=== PATIENT | female | born 1955 | race Two or more races ===

== ENCOUNTER 2023-10-19 10:54 | Inpatient (IN) | payer OTHER ==
[2023-10-19] MEDS ORDERED: ACETAMINOPHEN INJECTION 100 ML IVPB ONE (11:30)
[2023-10-19] MEDS ORDERED: levETIRAcetam 500 MG/5 ML INJECTION VIAL IVPB ONE (11:30)
[2023-10-19 11:47] LABS: VENOUS BASE EXCESS -0.6 mmol/L (-2-2); VENOUS O2 SATURATION 24.7 % (70-80); VENOUS PCO2 51.8 mmHg (38-52); VENOUS PH 7.322 (7.310-7.410)
[2023-10-19 11:50] LABS: HEMOGLOBIN 12.7 GM/dL (10.7-15.3); INR 1.06 (0.83-1.09); MCHC 32.6 g/dl (32.0-36.0); MEAN CELL VOLUME 98.2 fl (80-96); MEAN PLT VOLUME 7.9 fl (7.5-11.1); PLATELET COUNT 141 10^3/uL (134-434); PROTHROMBIN TIME (PATIENT) 12.3 SEC (9.7-13.0); RBC 3.97 M/mm3 (3.60-5.2); RDW 16.4 % (11.6-15.6); WHITE BLOOD COUNT 4.1 K/mm3 (4.0-10.0)
[2023-10-19 11:53] LABS: ACTIVATED PTT 25.9 SECONDS (25.2-36.5)
[2023-10-19 12:03] LABS: POTASSIUM 5.8 mmol/L (3.5-5.1)
[2023-10-19] MEDS: ACETAMINOPHEN 1000 MG/100 ML BAG IVPB ONE (12:04)
[2023-10-19] MEDS: levETIRAcetam 500 MG/5 ML INJECTION VIAL IVPB ONE (12:04)
[2023-10-19 12:05] LABS: BLOOD UREA NITROGEN 29.7 mg/dL (7-18)
[2023-10-19 12:06] LABS: ALBUMIN 3.1 g/dl (3.4-5.0)
[2023-10-19 12:08] LABS: CREATININE 7.3 mg/dL (0.55-1.3)
[2023-10-19 12:10] LABS: BILIRUBIN,TOTAL 0.6 mg/dL (0.2-1)
[2023-10-19 12:14] LABS: ANISOCYTOSIS 0; MACROCYTOSIS 0
[2023-10-19 13:12] LABS: CALCIUM 9.5 mg/dL (8.5-10.1); POTASSIUM 5.1 mmol/L (3.5-5.1)
[2023-10-19 13:13] LABS: BLOOD UREA NITROGEN 30.8 mg/dL (7-18)
[2023-10-19 13:16] LABS: CREATININE 7.1 mg/dL (0.55-1.3)
[2023-10-19] MEDS ORDERED: VANCOMYCIN 1 GRAM (PRE-DOCKED) 1,000 MG/250 ML BAG IVPB ONE (13:23)
[2023-10-19 13:24] LABS: LACTIC ACID 2.6 mmol/L (0.4-2.0)
[2023-10-19] MEDS: VANCOMYCIN 1,000 MG in DEXTROSE 5%-WATER - 250 ML IVPB ONE (13:36)
[2023-10-19 13:39] LABS: PH,URINE 7.5 (5.0-8.0); URINE APPEARANCE TURBID; URINE BILIRUBIN SMALL (NEGATIVE); URINE COLOR ORANGE; URINE GLUCOSE (UA) NEGATIVE (NEGATIVE); URINE KETONE NEGATIVE (NEGATIVE); URINE PROTEIN 300 (NEGATIVE); URINE UROBILINOGEN 0.2 mg/dL (0.2-1.0)
[2023-10-19 13:40] LABS: HYALINE CASTS 1047.21 /uL (0-3.1); URINE BACTERIA 703.2 /uL (0-1359); URINE LEUK ESTERASE 4+ (NEGATIVE); URINE NITRITE POSITIVE (NEGATIVE); URINE RBC 383.2 /uL (0-23.9); URINE WBC 23731.9 /uL (0-25.8)
[2023-10-19] MEDS: SODIUM CHLORIDE 0.9% 500 ML INFUS.BAG IV ONE (14:23)
[2023-10-19] MEDS ORDERED: NOREPINEPHRINE 0.9 % NACL 8 MG/250 ML BAG IVPB ONE (14:56)
[2023-10-19] MEDS: BUDESONIDE/FORMETEROL FUMARATE 160/4.5 mcg INHALER IH ONE (15:15)
[2023-10-19] MEDS: NOREPINEPHRINE BITARTRATE 8,000 MCG in SODIUM CHLORIDE 492 ML IV SCH (15:19)
[2023-10-19 16:23] VITALS: BMI 38.0
[2023-10-19] MEDS: NOREPINEPHRINE 0.9 % NACL 8 MG/250 ML BAG IVPB SCH (16:52)
[2023-10-19] MEDS: CIPROFLOXACIN 400 MG/D5W 400 MG/200 ML IVPB IVPB ONE (17:21)
[2023-10-19 17:26] LABS: POTASSIUM 4.4 mmol/L (3.5-5.1)
[2023-10-19 17:28] LABS: ALBUMIN 2.8 g/dl (3.4-5.0); CALCIUM 8.8 mg/dL (8.5-10.1)
[2023-10-19 17:29] LABS: BLOOD UREA NITROGEN 31.1 mg/dL (7-18); MAGNESIUM 1.7 mg/dL (1.8-2.4)
[2023-10-19 17:31] LABS: CREATININE 7.3 mg/dL (0.55-1.3)
[2023-10-19 17:32] LABS: PHOSPHOROUS 1.8 mg/dL (2.5-4.9)
[2023-10-19 17:33] LABS: BILIRUBIN,TOTAL 0.8 mg/dL (0.2-1); TOT PROT 6.9 g/dl (6.4-8.2)
[2023-10-19] MEDS: AZTREONAM 1 GM in DEXTROSE 5%-WATER - 50 ML IVPB SCH (17:52)
[2023-10-19] MEDS: ACETAMINOPHEN 1000 MG/100 ML BAG IVPB PRN (17:53)
[2023-10-19] MEDS: AZTREONAM 1 GM VIAL (RESTRICTED TO ID) IVPB SCH (18:02)
[2023-10-19] MEDS: NOREPINEPHRINE BITARTRATE 16,000 MCG in SODIUM CHLORIDE 484 ML IV SCH (18:02)
[2023-10-19 18:27] LABS: BASO % 0.2 % (0-2.0); EOS % 0.6 % (0-4.5); HEMOGLOBIN 11.4 GM/dL (10.7-15.3); LYMPH % 7.8 % (8-40); MCH 32.1 pg (25.7-33.7); MCHC 32.6 g/dl (32.0-36.0); MEAN CELL VOLUME 98.3 fl (80-96); MEAN PLT VOLUME 8.1 fl (7.5-11.1); MONO % 12.9 % (3.8-10.2); NEUT % 78.5 % (42.8-82.8); PLATELET COUNT 118 10^3/uL (134-434); RBC 3.56 M/mm3 (3.60-5.2)
[2023-10-19] MEDS: MAGNESIUM 1GM/D5W - 1 GM/100 ML IVPB IVPB ONE (20:48)
[2023-10-19] MEDS: ALBUTEROL SO4 0.083% IH SOL 2.5 MG/3 ML VIAL.NEB. NEB SCH (21:08)
[2023-10-19] MEDS: ATORVASTATIN CA 40 MG TABLET (FP) PO SCH (21:43)
[2023-10-19] MEDS: APIXABAN 2.5 MG TABLET PO SCH (21:43)
[2023-10-20 06:50] LABS: HEMATOCRIT 33.6 % (32.4-45.2); HEMOGLOBIN 10.9 GM/dL (10.7-15.3); MCHC 32.4 g/dl (32.0-36.0); MEAN CELL VOLUME 98.9 fl (80-96); MEAN PLT VOLUME 7.7 fl (7.5-11.1); PLATELET COUNT 113 10^3/uL (134-434); RDW 15.9 % (11.6-15.6)
[2023-10-20 06:58] LABS: CHLORIDE 106 mmol/L (98-107); POTASSIUM 5.3 mmol/L (3.5-5.1); SODIUM 137 mmol/L (136-145)
[2023-10-20 07:00] LABS: ALBUMIN 2.3 g/dl (3.4-5.0); CALCIUM 8.5 mg/dL (8.5-10.1)
[2023-10-20 07:01] LABS: ANION GAP 9 mmol/L (4-13); BLOOD UREA NITROGEN 37.7 mg/dL (7-18); CO2 22 mmol/L (21-32); GLUCOSE,RANDOM 70 mg/dL (74-106); MAGNESIUM 1.9 mg/dL (1.8-2.4)
[2023-10-20 07:04] LABS: PHOSPHOROUS 2.5 mg/dL (2.5-4.9); SGOT/AST 23 U/L (15-37); SGPT/ALT 26 U/L (13-61)
[2023-10-20 07:05] LABS: BILIRUBIN,TOTAL 0.9 mg/dL (0.2-1); TOT PROT 6.1 g/dl (6.4-8.2)
[2023-10-20 07:22] LABS: ALK PHOS 151 U/L (45-117)
[2023-10-20] MEDS: levETIRAcetam 500 MG/5 ML INJECTION VIAL IVPB SCH (10:04)
[2023-10-20] MEDS: ASPIRIN COATED 81 MG TABLET.EC PO SCH (10:04)
[2023-10-20 10:14] LABS: ANISOCYTOSIS 0; HELMET CELLS 0; HOWELL-JOLLY BODIES 0; MACROCYTOSIS 0; OVALOCYTE 0; ROULEAU 0; SICKELED CELLS 0; TARGET CELLS 0; TEAR DROP CELLS 0; TOXIC GRANULATION 0
[2023-10-20] MEDS: VANCOMYCIN/WATER FOR INJ (PEG) 1,000 MG/200 ML BAG IVPB ONE (12:00)
[2023-10-20] MEDS: SODIUM CHLORIDE 250 ML IV PRN (13:20)
[2023-10-20] MEDS: MIDODRINE HCL 5 MG TABLET PO SCH (13:22)
[2023-10-20] MEDS: EPOETIN ALFA-EPBX 2,000 UNIT/ML VIAL IVPUSH ONE (15:29)
[2023-10-21] MEDS: HYDROmorphone HCl 2 MG/ML VIAL IVPUSH ONE ×2 (03:09→23:36)
[2023-10-21 06:37] LABS: HEMOGLOBIN 11.3 GM/dL (10.7-15.3); MCH 31.9 pg (25.7-33.7); MCHC 32.3 g/dl (32.0-36.0); MEAN CELL VOLUME 98.7 fl (80-96); PLATELET COUNT 132 10^3/uL (134-434); RBC 3.55 M/mm3 (3.60-5.2); WHITE BLOOD COUNT 16.3 K/mm3 (4.0-10.0)
[2023-10-21 06:49] LABS: POTASSIUM 3.9 mmol/L (3.5-5.1)
[2023-10-21 06:52] LABS: CALCIUM 8.9 mg/dL (8.5-10.1); MAGNESIUM 1.7 mg/dL (1.8-2.4)
[2023-10-21 06:56] LABS: CREATININE 5.5 mg/dL (0.55-1.3); PHOSPHOROUS 1.9 mg/dL (2.5-4.9)
[2023-10-21] MEDS: MAGNESIUM 1GM/D5W - 1 GM/100 ML IVPB IVPB ONE (10:06)
[2023-10-21] MEDS: NAPH,MB-DB/K PH,MBDB POWDER PACKET PO ONE (10:07)
[2023-10-21] MEDS: VITAMIN B COMP W-C 1 EA TABLET (NEPHRO-VITE) PO SCH (10:07)
[2023-10-21] MEDS: VANCOMYCIN/WATER FOR INJ (PEG) 1,000 MG/200 ML BAG IVPB ONE (13:57)
[2023-10-21] MEDS ORDERED: HYDROmorphone HCl 2 MG/ML VIAL ONE (23:22)
[2023-10-22 06:39] LABS: BASO % 0.5 % (0-2.0); EOS % 2.6 % (0-4.5); HEMATOCRIT 31.7 % (32.4-45.2); HEMOGLOBIN 10.4 GM/dL (10.7-15.3); LYMPH % 4.6 % (8-40); MCH 32.2 pg (25.7-33.7); MCHC 32.7 g/dl (32.0-36.0); MEAN CELL VOLUME 98.7 fl (80-96); MEAN PLT VOLUME 7.8 fl (7.5-11.1); MONO % 7.5 % (3.8-10.2); NEUT % 84.8 % (42.8-82.8); PLATELET COUNT 125 10^3/uL (134-434); RBC 3.21 M/mm3 (3.60-5.2); RDW 15.9 % (11.6-15.6); WHITE BLOOD COUNT 14.9 K/mm3 (4.0-10.0)
[2023-10-22 07:03] LABS: CALCIUM 9.2 mg/dL (8.5-10.1)
[2023-10-22 07:04] LABS: ALBUMIN 2.1 g/dl (3.4-5.0); BLOOD UREA NITROGEN 44.3 mg/dL (7-18)
[2023-10-22 07:07] LABS: CREATININE 6.5 mg/dL (0.55-1.3); PHOSPHOROUS 1.8 mg/dL (2.5-4.9)
[2023-10-22 07:08] LABS: BILIRUBIN,TOTAL 0.7 mg/dL (0.2-1); TOT PROT 6.1 g/dl (6.4-8.2)
[2023-10-22] MEDS: NAPH,MB-DB/K PH,MBDB POWDER PACKET PO ONE (09:36)
[2023-10-22] MEDS: levETIRAcetam 250 MG TABLET PO SCH ×2 (09:43→22:34)
[2023-10-22] MEDS: CALCIUM ACETATE 667 MG CAPSULE (FP) PO SCH (11:26)
[2023-10-22] MEDS: GABAPENTIN 300 MG CAPSULE PO SCH ×2 (11:26→22:35)
[2023-10-22] MEDS: NYSTATIN POWDER 100,000 UNITS/GM - 15 GM TOPICAL POWDER TP SCH ×2 (11:27→22:38)
[2023-10-22] MEDS: MECLIZINE HCL 25 MG TABLET (FP) PO PRN (11:27)
[2023-10-22] MEDS: ALBUTEROL SO4 HFA INHALER IH SCH (15:36)
[2023-10-22] MEDS ORDERED: MECLIZINE HCL 25 MG TABLET (FP) PO PRN ×2 (17:10→17:59)
[2023-10-22] MEDS ORDERED: MIDODRINE HCL 5 MG TABLET PO SCH (18:00)
[2023-10-22] MEDS: MIDODRINE HCL 5 MG TABLET PO SCH (18:26)
[2023-10-22] MEDS ORDERED: ATORVASTATIN CA 40 MG TABLET (FP) PO SCH (22:00)
[2023-10-22] MEDS ORDERED: NYSTATIN POWDER 100,000 UNITS/GM - 15 GM TOPICAL POWDER TP SCH (22:00)
[2023-10-22] MEDS ORDERED: PATIENT'S OWN MEDICATION (NON-FORMULARY) (Calcium Acetate [Calcium Acetate] 667 MG) PO SCH (22:00)
[2023-10-22] MEDS ORDERED: ALBUTEROL SO4 HFA INHALER IH PRN (22:30)
[2023-10-22] MEDS: APIXABAN 2.5 MG TABLET PO SCH (22:33)
[2023-10-22] MEDS: ATORVASTATIN CA 40 MG TABLET (FP) PO SCH (22:33)
[2023-10-22] MEDS: ACETAMINOPHEN 500 MG TABLET (FP) PO ONE (22:35)
[2023-10-23] MEDS ORDERED: SODIUM CHLORIDE 250 ML IV PRN (08:22)
[2023-10-23 09:17] LABS: HEMATOCRIT 35.2 % (32.4-45.2); HEMOGLOBIN 11.3 GM/dL (10.7-15.3); MCH 31.9 pg (25.7-33.7); MCHC 32.2 g/dl (32.0-36.0); MEAN CELL VOLUME 99.1 fl (80-96); MEAN PLT VOLUME 7.4 fl (7.5-11.1); PLATELET COUNT 150 10^3/uL (134-434); RBC 3.55 M/mm3 (3.60-5.2); RDW 16.2 % (11.6-15.6); WHITE BLOOD COUNT 8.5 K/mm3 (4.0-10.0)
[2023-10-23 09:26] LABS: CHLORIDE 104 mmol/L (98-107); POTASSIUM 4.3 mmol/L (3.5-5.1); SODIUM 139 mmol/L (136-145)
[2023-10-23 09:31] LABS: ANION GAP 8 mmol/L (4-13); BLOOD UREA NITROGEN 57.8 mg/dL (7-18); CALCIUM 9.4 mg/dL (8.5-10.1); CO2 28 mmol/L (21-32); GLUCOSE,RANDOM 74 mg/dL (74-106)
[2023-10-23 09:32] LABS: ALBUMIN 2.3 g/dl (3.4-5.0); MAGNESIUM 2.2 mg/dL (1.8-2.4)
[2023-10-23 09:34] LABS: PHOSPHOROUS 1.6 mg/dL (2.5-4.9); SGPT/ALT 18 U/L (13-61)
[2023-10-23 09:35] LABS: SGOT/AST 17 U/L (15-37)
[2023-10-23 09:36] LABS: BILIRUBIN,TOTAL 0.8 mg/dL (0.2-1); TOT PROT 6.5 g/dl (6.4-8.2)
[2023-10-23 09:37] LABS: ALK PHOS 184 U/L (45-117)
[2023-10-23 09:38] LABS: CREATININE 7.6 mg/dL (0.55-1.3)
[2023-10-23] MEDS ORDERED: CHOLECALCIFEROL (VIT D3) 400 UNIT (10 MCG) TABLET PO SCH ×2 (10:00)
[2023-10-23] MEDS ORDERED: FOLIC ACID 1 MG TABLET (FP) PO SCH (10:00)
[2023-10-23] MEDS ORDERED: VITAMIN B COMP W-C 1 EA TABLET (NEPHRO-VITE) PO SCH (10:00)
[2023-10-23] MEDS ORDERED: PANTOPRAZOLE 40 MG TABLET PO SCH (10:00)
[2023-10-23] MEDS ORDERED: PATIENT'S OWN MEDICATION (NON-FORMULARY) (Ferrous Sulfate [Ferrous Sulfate] 325 MG) PO SCH (10:00)
[2023-10-23] MEDS ORDERED: SERTRALINE HCL 25 MG TABLET (FP) PO SCH (10:00)
[2023-10-23] MEDS ORDERED: FERROUS SO4 325 MG TABLET (FP) PO SCH (10:00)
[2023-10-23] MEDS ORDERED: ASPIRIN COATED 81 MG TABLET.EC PO SCH (10:00)
[2023-10-23] MEDS: CALCIUM ACETATE 667 MG CAPSULE (FP) PO SCH (11:26)
[2023-10-23] MEDS: ASPIRIN COATED 81 MG TABLET.EC PO SCH (11:26)
[2023-10-23] MEDS: VITAMIN B COMP W-C 1 EA TABLET (NEPHRO-VITE) PO SCH (11:27)
[2023-10-23] MEDS: FERROUS SO4 325 MG TABLET (FP) PO SCH (11:27)
[2023-10-23] MEDS: FOLIC ACID 1 MG TABLET (FP) PO SCH (11:27)
[2023-10-23] MEDS: SERTRALINE HCL 25 MG TABLET (FP) PO SCH (11:28)
[2023-10-23] MEDS: PANTOPRAZOLE 40 MG TABLET PO SCH (11:28)
[2023-10-23] MEDS: CHOLECALCIFEROL (VIT D3) 400 UNIT (10 MCG) TABLET PO SCH (11:28)
[2023-10-23 13:31] LABS: ANISOCYTOSIS 0; HELMET CELLS 0; HOWELL-JOLLY BODIES 0; MACROCYTOSIS 0; OVALOCYTE 0; ROULEAU 0; SICKELED CELLS 0; TARGET CELLS 0; TEAR DROP CELLS 0; TOXIC GRANULATION 0
[2023-10-23] MEDS: ACETAMINOPHEN 325 MG TABLET (FP) PO ONE (20:01)
[2023-10-23 20:55] VITALS: RESP 20
[2023-10-24] MEDS: EPOETIN ALFA-EPBX 4,000 UNIT/ML VIAL IVPUSH ONE (07:26)
[2023-10-24] MEDS ORDERED: ACETAMINOPHEN 325 MG TABLET (FP) PO PRN (11:12)
[2023-10-24 15:16] VITALS: BP 113/55; PULSE 75; TEMP 98.4
[2023-10-24] MEDS: ACETAMINOPHEN 325 MG TABLET (FP) PO PRN (15:38)
== END 2023-10-24 21:00 | DRG 871 ==
LOC: JER 10:54 → JERBED 13:03 → JICU 16:00 → J8W 10-22 17:29
PROVIDERS: ADMIT Internal Medicine; ATTEND Internal Medicine
PROC: 05HM33Z Insertion of Infusion Device into Right Internal Jugular Vein, Percutaneous Approach (ICD-10-PCS; principal; 2023-10-19)
PROC: B543ZZA Ultrasonography of Right Jugular Veins, Guidance (ICD-10-PCS; 2023-10-19)
PROC: 5A1D70Z Performance of Urinary Filtration, Intermittent, Less than 6 Hours Per Day (ICD-10-PCS; 2023-10-20)
PROC: 5A1D70Z Performance of Urinary Filtration, Intermittent, Less than 6 Hours Per Day (ICD-10-PCS; 2023-10-23)
DX: A41.89 Other specified sepsis (principal); G93.41 Metabolic encephalopathy; N18.6 End stage renal disease; R65.21 Severe sepsis with septic shock; I12.0 Hypertensive chronic kidney disease with stage 5 chronic kidney disease or end stage renal disease; I48.91 Unspecified atrial fibrillation; G40.909 Epilepsy, unspecified, not intractable, without status epilepticus; R09.02 Hypoxemia; J44.9 Chronic obstructive pulmonary disease, unspecified; R50.9 Fever, unspecified; E78.5 Hyperlipidemia, unspecified; D72.829 Elevated white blood cell count, unspecified; I73.9 Peripheral vascular disease, unspecified; K21.9 Gastro-esophageal reflux disease without esophagitis; G47.00 Insomnia, unspecified; F41.8 Other specified anxiety disorders; D63.1 Anemia in chronic kidney disease; Z99.2 Dependence on renal dialysis; Z86.73 Personal history of transient ischemic attack (TIA), and cerebral infarction without residual deficits; E66.9 Obesity, unspecified; Z68.38 Body mass index [BMI] 38.0-38.9, adult; Z88.0 Allergy status to penicillin; Z89.512 Acquired absence of left leg below knee
CPT/HCPCS: 0241U-QW; 36415; 70450-TC; 71045-TC-FY; 80048; 80053; 80177; 81003; 82550; 82803; 82962; 83036; 83605; 83735; 84100; 84443; 84484; 85025; 85027; 85610; 85730; 86140; 86704; 86803; 86850; 86900; 86901; 87040; 87086; 87340; 87517; 87635; 93005; 93010; 93971-TC; 94640; 99291; G0480; J0131; Q5106

== ENCOUNTER 2023-12-01 12:32 | Emergency (ER) | payer OTHER ==
[2023-12-01 12:49] VITALS: RESP 20; BMI 40.3
[2023-12-01 14:06] LABS: BASO % 0.9 % (0-2.0); EOS % 6.6 % (0-4.5); HEMATOCRIT 34.3 % (32.4-45.2); HEMOGLOBIN 11.1 GM/dL (10.7-15.3); LYMPH % 14.2 % (8-40); MCH 32.4 pg (25.7-33.7); MCHC 32.3 g/dl (32.0-36.0); MEAN CELL VOLUME 100.3 fl (80-96); MEAN PLT VOLUME 7.7 fl (7.5-11.1); MONO % 17.3 % (3.8-10.2); PLATELET COUNT 110 10^3/uL (134-434); RBC 3.42 M/mm3 (3.60-5.2); RDW 16.1 % (11.6-15.6); WHITE BLOOD COUNT 5.5 K/mm3 (4.0-10.0)
[2023-12-01 14:17] LABS: INR 1.2 (0.83-1.09); PROTHROMBIN TIME (PATIENT) 13.9 SEC (9.7-13.0)
[2023-12-01 14:19] LABS: ACTIVATED PTT 37.8 SECONDS (25.2-36.5)
[2023-12-01 14:24] LABS: CHLORIDE 101 mmol/L (98-107); POTASSIUM 5.1 mmol/L (3.5-5.1); SODIUM 137 mmol/L (136-145)
[2023-12-01 14:27] LABS: CALCIUM 9.5 mg/dL (8.5-10.1)
[2023-12-01 14:28] LABS: ALBUMIN 2.9 g/dl (3.4-5.0); ANION GAP 7 mmol/L (4-13); CO2 29 mmol/L (21-32); GLUCOSE,RANDOM 107 mg/dL (74-106)
[2023-12-01 14:31] LABS: SGOT/AST 53 U/L (15-37); SGPT/ALT 36 U/L (13-61)
[2023-12-01 14:32] LABS: TOT PROT 8.2 g/dl (6.4-8.2)
[2023-12-01 14:33] LABS: BILIRUBIN,TOTAL 0.5 mg/dL (0.2-1)
[2023-12-01 14:34] LABS: ALK PHOS 271 U/L (45-117); CREATININE 7.6 mg/dL (0.55-1.3)
[2023-12-01 21:37] VITALS: BP 100/40; PULSE 68; TEMP 97.8
== END 2023-12-01 23:58 | disposition home or self-care (01) ==
LOC: JER 12:32
DX: K94.01 Colostomy hemorrhage (principal); R10.9 Unspecified abdominal pain; I12.0 Hypertensive chronic kidney disease with stage 5 chronic kidney disease or end stage renal disease; N18.6 End stage renal disease; Z99.2 Dependence on renal dialysis
CPT/HCPCS: 36415; 74176-TC; 80053; 82272; 85025; 85610; 85730; 86850; 86900; 86901; 99284-25

== ENCOUNTER 2024-05-19 07:34 | Inpatient (IN) | payer OTHER ==
[2024-05-19] MEDS: VANCOMYCIN 2,000 MG in DEXTROSE 5%-WATER - 500 ML IVPB ONE (08:38)
[2024-05-19] MEDS ORDERED: ACETAMINOPHEN INJECTION 100 ML ONE (09:12)
[2024-05-19 09:13] LABS: VENOUS BASE EXCESS -18.7 mmol/L (-2-2); VENOUS O2 SATURATION 80.4 % (70-80); VENOUS PCO2 39.2 mmHg (38-52)
[2024-05-19] MEDS ORDERED: CEFEPIME 2 GM/100 ML BAG IVPB ONE (09:13)
[2024-05-19 09:17] LABS: VENOUS PH 7.057 (7.310-7.410)
[2024-05-19] MEDS: ACETAMINOPHEN 1000 MG/100 ML BAG IVPB ONE (09:24)
[2024-05-19 09:25] LABS: HEMATOCRIT 32.5 % (32.4-45.2); HEMOGLOBIN 10.5 GM/dL (10.7-15.3); MCH 32.4 pg (25.7-33.7); MCHC 32.3 g/dl (32.0-36.0); MEAN CELL VOLUME 100.4 fl (80-96); MEAN PLT VOLUME 9.3 fl (7.5-11.1); PLATELET COUNT 164 10^3/uL (134-434); RBC 3.24 M/mm3 (3.60-5.2); RDW 16.1 % (11.6-15.6); WHITE BLOOD COUNT 17.9 K/mm3 (4.0-10.0)
[2024-05-19] MEDS: CEFEPIME HCL 2 GM VIAL (RESTRICTED TO ID) IVPB ONE (09:25)
[2024-05-19 09:32] LABS: INR 1.02 (0.83-1.09); PROTHROMBIN TIME (PATIENT) 11.7 SEC (9.7-13.0)
[2024-05-19 09:34] LABS: ACTIVATED PTT 33.9 SECONDS (25.2-36.5)
[2024-05-19 10:05] LABS: CHLORIDE 110 mmol/L (98-107); SODIUM 139 mmol/L (136-145)
[2024-05-19 10:07] LABS: CALCIUM 9.2 mg/dL (8.5-10.1); CO2 9 mmol/L (21-32); GLUCOSE,RANDOM 119 mg/dL (74-106)
[2024-05-19 10:08] LABS: MAGNESIUM 2.2 mg/dL (1.8-2.4)
[2024-05-19 10:10] LABS: SGOT/AST 41 U/L (15-37); SGPT/ALT 44 U/L (13-61)
[2024-05-19 10:11] LABS: PHOSPHOROUS 6.1 mg/dL (2.5-4.9)
[2024-05-19 10:12] LABS: TOT PROT 7.1 g/dl (6.4-8.2)
[2024-05-19 10:18] LABS: ALK PHOS 243 U/L (45-117)
[2024-05-19] MEDS ORDERED: SODIUM CHLORIDE 250 ML IV PRN (10:32)
[2024-05-19 10:49] LABS: ANION GAP 19 mmol/L (4-13); CREATININE 16.2 mg/dL (0.55-1.3); POTASSIUM 6.9 mmol/L (3.5-5.1)
[2024-05-19 10:55] LABS: BLOOD UREA NITROGEN 152.8 mg/dL (7-18)
[2024-05-19] MEDS ORDERED: DEXTROSE 50%-WATER 25 GM/50 ML DISP.SYRIN ONE (11:00)
[2024-05-19] MEDS ORDERED: CALCIUM GLUC IN NACL, ISO-OSM 1 GM/50 ML BAG IVPB ONE (11:00)
[2024-05-19] MEDS ORDERED: INSULIN REGULAR HUMAN 100 UNITS/ML *VIAL ONE ×2 (11:01→11:06)
[2024-05-19] MEDS: CALCIUM GLUC IN NACL, ISO-OSM 1 GM/50 ML BAG IVPB ONE (11:18)
[2024-05-19] MEDS: INSULIN REGULAR HUMAN 100 UNITS/ML *VIAL IVPUSH ONE (11:18)
[2024-05-19] MEDS: DEXTROSE 50%-WATER 25 GM/50 ML DISP.SYRIN IVPUSH ONE (11:18)
[2024-05-19 11:30] LABS: ANISOCYTOSIS 0; MACROCYTOSIS 1+
[2024-05-19] MEDS: VANCOMYCIN/WATER 2 GRAMS 2,000 MG/400 ML PIGGYBACK IVPB ONE (12:26)
[2024-05-19] MEDS: SODIUM BICARBONATE 8.4% - 75 MEQ in SODIUM CHLORIDE 0.45% 950 ML IV SCH (14:43)
[2024-05-19] MEDS: MEROPENEM 1 GM in DEXTROSE 5%-WATER 100 ML IVPB SCH (14:59)
[2024-05-19] MEDS ORDERED: HEPARIN NA (PORCINE) 5,000 UNITS/ML 1ML VIAL SQ SCH (22:00)
[2024-05-19] MEDS: levETIRAcetam 500 MG/5 ML INJECTION VIAL IVPB SCH (22:52)
[2024-05-20 08:40] LABS: BASO % 0.1 % (0-2.0); EOS % 0.2 % (0-4.5); HEMATOCRIT 23.3 % (32.4-45.2); HEMOGLOBIN 7.6 GM/dL (10.7-15.3); MCH 32.4 pg (25.7-33.7); MCHC 32.7 g/dl (32.0-36.0); MEAN CELL VOLUME 98.9 fl (80-96); MEAN PLT VOLUME 7.5 fl (7.5-11.1); MONO % 11.4 % (3.8-10.2); NEUT % 83.3 % (42.8-82.8); PLATELET COUNT 120 10^3/uL (134-434); RBC 2.36 M/mm3 (3.60-5.2); RDW 15.1 % (11.6-15.6)
[2024-05-20 08:52] LABS: CHLORIDE 106 mmol/L (98-107); POTASSIUM 4.3 mmol/L (3.5-5.1); SODIUM 141 mmol/L (136-145)
[2024-05-20 08:59] LABS: CALCIUM 8.1 mg/dL (8.5-10.1)
[2024-05-20 09:00] LABS: ANION GAP 10 mmol/L (4-13); CO2 25 mmol/L (21-32); GLUCOSE,RANDOM 116 mg/dL (74-106)
[2024-05-20 09:08] LABS: BLOOD UREA NITROGEN 87.9 mg/dL (7-18); CREATININE 10.2 mg/dL (0.55-1.3)
[2024-05-20] MEDS ORDERED: SODIUM CHLORIDE 1,000 ML IV STA (10:54)
[2024-05-20 11:01] LABS: HEMATOCRIT 22.8 % (32.4-45.2); HEMOGLOBIN 7.5 GM/dL (10.7-15.3); MCH 32.4 pg (25.7-33.7); MCHC 32.8 g/dl (32.0-36.0); MEAN CELL VOLUME 98.7 fl (80-96); MEAN PLT VOLUME 7.1 fl (7.5-11.1); PLATELET COUNT 119 10^3/uL (134-434); RBC 2.31 M/mm3 (3.60-5.2); RDW 15.4 % (11.6-15.6); WHITE BLOOD COUNT 13.2 K/mm3 (4.0-10.0)
[2024-05-20] MEDS: PANTOPRAZOLE SODIUM 80 MG in SODIUM CHLORIDE 100 ML IVPB SCH (11:02)
[2024-05-20] MEDS: PANTOPRAZOLE SODIUM 40 MG VIAL IVPUSH SCH ×2 (11:02→21:33)
[2024-05-20] MEDS: MEROPENEM 1 GM in DEXTROSE 5%-WATER 100 ML IVPB SCH (11:03)
[2024-05-20] MEDS ORDERED: PANTOPRAZOLE SODIUM 160 MG in SODIUM CHLORIDE 290 ML IVPB SCH (11:15)
[2024-05-20 11:47] LABS: ARTERIAL BLD GAS O2 SATURATION 98.4 % (95-98); ARTERIAL BLOOD GAS BASE EXCESS -5.2 mmol/L (-2-2); ARTERIAL BLOOD GAS PO2 126.9 mmHg (80-100); ARTERIAL BLOOD GAS pH 7.355 (7.350-7.450)
[2024-05-20 11:49] LABS: ALLENS TEST POSITIVE
[2024-05-20] MEDS: MUPIROCIN 2% TOPICAL OINTMENT FOR DECOLONIZATION NS SCH (12:51)
[2024-05-20] MEDS ORDERED: SODIUM CHLORIDE 250 ML IV PRN (13:07)
[2024-05-20 15:29] LABS: GAMMA GLUTAMYL TRANSPEPTIDASE 79 U/L (5-85)
[2024-05-20] MEDS: CHLORHEXIDINE GLUCONATE 4% CLEANSER FOR DECOLONIZATION TP SCH (21:32)
[2024-05-20] MEDS: AZTREONAM 2 GM in DEXTROSE 5%-WATER 100 ML IVPB SCH (21:32)
[2024-05-20] MEDS: levETIRAcetam 500 MG/5 ML INJECTION VIAL IVPB SCH (21:33)
[2024-05-20] MEDS: VANCOMYCIN/WATER FOR INJ (PEG) 1,000 MG/200 ML BAG IVPB ONE (22:31)
[2024-05-21 08:13] LABS: BASO % 0.2 % (0-2.0); CHLORIDE 104 mmol/L (98-107); EOS % 0.9 % (0-4.5); HEMATOCRIT 27.7 % (32.4-45.2); HEMOGLOBIN 9.2 GM/dL (10.7-15.3); LYMPH % 4.3 % (8-40); MCH 32.2 pg (25.7-33.7); MCHC 33.3 g/dl (32.0-36.0); MEAN CELL VOLUME 96.5 fl (80-96); MEAN PLT VOLUME 7.6 fl (7.5-11.1); MONO % 11.8 % (3.8-10.2); NEUT % 82.8 % (42.8-82.8); PLATELET COUNT 112 10^3/uL (134-434); POTASSIUM 3.9 mmol/L (3.5-5.1); RBC 2.87 M/mm3 (3.60-5.2); RDW 16.2 % (11.6-15.6); SODIUM 141 mmol/L (136-145)
[2024-05-21 08:21] LABS: ANION GAP 10 mmol/L (4-13); BLOOD UREA NITROGEN 70.3 mg/dL (7-18); CALCIUM 7.9 mg/dL (8.5-10.1); CO2 26 mmol/L (21-32); GLUCOSE,RANDOM 109 mg/dL (74-106); MAGNESIUM 1.8 mg/dL (1.8-2.4)
[2024-05-21 08:24] LABS: PHOSPHOROUS 3.2 mg/dL (2.5-4.9); SGOT/AST 47 U/L (15-37); SGPT/ALT 37 U/L (13-61)
[2024-05-21 08:26] LABS: BILIRUBIN,TOTAL 1.6 mg/dL (0.2-1); TOT PROT 6.2 g/dl (6.4-8.2)
[2024-05-21 08:37] LABS: ALK PHOS 165 U/L (45-117); CREATININE 8.4 mg/dL (0.55-1.3)
[2024-05-21 14:50] VITALS: BMI 44.5
[2024-05-21 22:31] LABS: HEMATOCRIT 28.4 % (32.4-45.2); HEMOGLOBIN 9.4 GM/dL (10.7-15.3); MCH 31.7 pg (25.7-33.7); MCHC 33.2 g/dl (32.0-36.0); MEAN CELL VOLUME 95.6 fl (80-96); MEAN PLT VOLUME 7.1 fl (7.5-11.1); PLATELET COUNT 110 10^3/uL (134-434); RBC 2.97 M/mm3 (3.60-5.2); RDW 16.4 % (11.6-15.6); WHITE BLOOD COUNT 17.2 K/mm3 (4.0-10.0)
[2024-05-22 06:43] LABS: BASO % 0.3 % (0-2.0); HEMATOCRIT 27.7 % (32.4-45.2); HEMOGLOBIN 9.1 GM/dL (10.7-15.3); LYMPH % 4.3 % (8-40); MCH 31.7 pg (25.7-33.7); MCHC 32.7 g/dl (32.0-36.0); MEAN CELL VOLUME 96.9 fl (80-96); MEAN PLT VOLUME 7.4 fl (7.5-11.1); MONO % 12.8 % (3.8-10.2); NEUT % 81.6 % (42.8-82.8); PLATELET COUNT 121 10^3/uL (134-434); RBC 2.85 M/mm3 (3.60-5.2); RDW 16.4 % (11.6-15.6); WHITE BLOOD COUNT 16.2 K/mm3 (4.0-10.0)
[2024-05-22 07:02] LABS: CHLORIDE 105 mmol/L (98-107); POTASSIUM 4.1 mmol/L (3.5-5.1); SODIUM 141 mmol/L (136-145)
[2024-05-22 07:05] LABS: CALCIUM 8.2 mg/dL (8.5-10.1)
[2024-05-22 07:06] LABS: ALBUMIN 2.8 g/dl (3.4-5.0); ANION GAP 14 mmol/L (4-13); BLOOD UREA NITROGEN 81.3 mg/dL (7-18); CO2 22 mmol/L (21-32); GLUCOSE,RANDOM 86 mg/dL (74-106); MAGNESIUM 1.8 mg/dL (1.8-2.4)
[2024-05-22 07:09] LABS: PHOSPHOROUS 3.8 mg/dL (2.5-4.9); SGOT/AST 37 U/L (15-37); SGPT/ALT 31 U/L (13-61)
[2024-05-22 07:11] LABS: BILIRUBIN,TOTAL 1.4 mg/dL (0.2-1); TOT PROT 6.2 g/dl (6.4-8.2)
[2024-05-22 07:12] LABS: ALK PHOS 162 U/L (45-117)
[2024-05-22 07:31] LABS: CREATININE 9.2 mg/dL (0.55-1.3)
[2024-05-22] MEDS ORDERED: SODIUM CHLORIDE 250 ML IV PRN ×2 (08:54→14:20)
[2024-05-22] MEDS: EPOETIN ALFA-EPBX 10,000 UNIT/ML VIAL IVPUSH ONE (09:46)
[2024-05-22] MEDS: levETIRAcetam 500 MG/5 ML INJECTION VIAL IVPB SCH (21:26)
[2024-05-22] MEDS: PANTOPRAZOLE SODIUM 40 MG VIAL IVPUSH SCH (21:26)
[2024-05-22] MEDS ORDERED: MUPIROCIN 2% TOPICAL OINTMENT FOR DECOLONIZATION NS SCH (22:00)
[2024-05-22] MEDS ORDERED: CHLORHEXIDINE GLUCONATE 4% CLEANSER FOR DECOLONIZATION TP SCH (22:00)
[2024-05-23] MEDS: ACETAMINOPHEN 1000 MG/100 ML BAG IVPB ONE (10:52)
[2024-05-23] MEDS ORDERED: ZINC OXIDE 20% TOPICAL OINTMENT 30 GM TUBE TP SCH (11:30)
[2024-05-23] MEDS ORDERED: NYSTATIN POWDER 100,000 UNITS/GM - 15 GM TOPICAL POWDER TP SCH (11:30)
[2024-05-23] MEDS: AZTREONAM 2 GM in DEXTROSE 5%-WATER 100 ML IVPB SCH (13:37)
[2024-05-23] MEDS: ZINC OXIDE 20% TOPICAL OINTMENT 30 GM TUBE TP SCH (13:37)
[2024-05-23] MEDS: levETIRAcetam 250 MG TABLET PO SCH (13:37)
[2024-05-23] MEDS ORDERED: levETIRAcetam 250 MG TABLET PO SCH (22:00)
[2024-05-24] MEDS: ACETAMINOPHEN 1000 MG/100 ML BAG IVPB ONE (02:17)
[2024-05-24] MEDS ORDERED: EPOETIN ALFA-EPBX 4,000 UNIT/ML VIAL SQ ONE (10:49)
[2024-05-24] MEDS ORDERED: SODIUM CHLORIDE 250 ML IV PRN (10:49)
[2024-05-24 12:05] LABS: HEMATOCRIT 27.1 % (32.4-45.2); HEMOGLOBIN 8.8 GM/dL (10.7-15.3); MCHC 32.6 g/dl (32.0-36.0); MEAN PLT VOLUME 7.3 fl (7.5-11.1); PLATELET COUNT 143 10^3/uL (134-434); RBC 2.76 M/mm3 (3.60-5.2); WHITE BLOOD COUNT 13.3 K/mm3 (4.0-10.0)
[2024-05-24 12:24] LABS: POTASSIUM 3.7 mmol/L (3.5-5.1)
[2024-05-24 12:27] LABS: ALBUMIN 2.3 g/dl (3.4-5.0); CALCIUM 8.2 mg/dL (8.5-10.1)
[2024-05-24 12:30] LABS: CREATININE 7.3 mg/dL (0.55-1.3)
[2024-05-24 12:32] LABS: BILIRUBIN,TOTAL 1.1 mg/dL (0.2-1); TOT PROT 5.8 g/dl (6.4-8.2)
[2024-05-24 12:42] LABS: BLOOD UREA NITROGEN 51.2 mg/dL (7-18)
[2024-05-24] MEDS: VANCOMYCIN/WATER FOR INJ (PEG) 1,000 MG/200 ML BAG IVPB ONE (14:28)
[2024-05-24] MEDS: oxyCODONE HCL 5 MG TABLET PO PRN (14:28)
[2024-05-24] MEDS: EPOETIN ALFA-EPBX 4,000 UNIT/ML VIAL SQ ONE (17:13)
[2024-05-25] MEDS: GABAPENTIN 300 MG CAPSULE PO SCH (12:06)
[2024-05-26 00:07] VITALS: RESP 20
[2024-05-26 07:55] LABS: HEMATOCRIT 28.9 % (32.4-45.2); HEMOGLOBIN 9.1 GM/dL (10.7-15.3); MCH 32.1 pg (25.7-33.7); MCHC 31.6 g/dl (32.0-36.0); MEAN CELL VOLUME 101.4 fl (80-96); MEAN PLT VOLUME 7.5 fl (7.5-11.1); PLATELET COUNT 162 10^3/uL (134-434); RBC 2.85 M/mm3 (3.60-5.2); RDW 16.6 % (11.6-15.6); WHITE BLOOD COUNT 13.2 K/mm3 (4.0-10.0)
[2024-05-26 08:05] LABS: ALBUMIN 2.3 g/dl (3.4-5.0); BLOOD UREA NITROGEN 36.1 mg/dL (7-18); CALCIUM 8.4 mg/dL (8.5-10.1)
[2024-05-26 08:08] LABS: CREATININE 6.1 mg/dL (0.55-1.3)
[2024-05-26 08:09] LABS: BILIRUBIN,TOTAL 1.1 mg/dL (0.2-1); TOT PROT 6.1 g/dl (6.4-8.2)
[2024-05-26 18:23] VITALS: BP 114/50; PULSE 78; TEMP 98.1
== END 2024-05-27 00:25 | disposition home or self-care (01) | DRG 871 ==
LOC: JER 07:34 → JERBED 09:45 → J4W 14:17 → JICU 05-20 10:56 → J4W 05-22 14:11
PROVIDERS: ADMIT Internal Medicine; ATTEND Internal Medicine
PROC: 5A1D70Z Performance of Urinary Filtration, Intermittent, Less than 6 Hours Per Day (ICD-10-PCS; 2024-05-19)
PROC: 30233N1 Transfusion of Nonautologous Red Blood Cells into Peripheral Vein, Percutaneous Approach (ICD-10-PCS; 2024-05-20)
PROC: 0DJ08ZZ Inspection of Upper Intestinal Tract, Via Natural or Artificial Opening Endoscopic (ICD-10-PCS; principal; 2024-05-21 10:00)
DX: A41.9 Sepsis, unspecified organism (principal); G93.41 Metabolic encephalopathy; N18.6 End stage renal disease; R65.21 Severe sepsis with septic shock; K68.3 Retroperitoneal hematoma; I12.0 Hypertensive chronic kidney disease with stage 5 chronic kidney disease or end stage renal disease; K92.2 Gastrointestinal hemorrhage, unspecified; N39.0 Urinary tract infection, site not specified; D62 Acute posthemorrhagic anemia; Z68.41 Body mass index [BMI] 40.0-44.9, adult; Z99.2 Dependence on renal dialysis; K43.9 Ventral hernia without obstruction or gangrene; E87.5 Hyperkalemia; E66.9 Obesity, unspecified
CPT/HCPCS: 0241U-QW; 36415; 36430; 36600; 70450-TC; 71045-TC-FY; 74174-TC; 74177-TC; 76705-TC; 76775-TC; 80048; 80053; 82272; 82550; 82553; 82803; 82962; 82977; 83605; 83690; 83735; 84100; 84484; 85025; 85027; 85610; 85730; 86803; 86850; 86900; 86901; 86922; 87040; 87340; 93005; 93010; 97116-GP; 97163-GP; 99285-25; G0480; J0131; P9058; Q5106

== ENCOUNTER 2024-11-19 14:37 | Inpatient (IN) | payer OTHER ==
[2024-11-19 14:48] VITALS: BMI 44.2
[2024-11-19] MEDS ORDERED: oxyCODONE HCL 5 MG TABLET ONE (17:06)
[2024-11-19] MEDS: oxyCODONE HCL 5 MG TABLET PO ONE (17:20)
[2024-11-19 17:36] LABS: ABSOLUTE IMMATURE GRANULOCYTES 0.02 x10^3/uL (0.0-0.031); BASOPHILS # 0.04 x10^3/uL (0.01-0.08); EOSINOPHIL % 2.9 % (0.7-5.8); EOSINOPHILS # 0.19 x10^3/uL (0.04-0.36); HEMATOCRIT 35.3 % (34.1-44.9); HEMOGLOBIN 10.8 g/dL (11.2-15.7); MCHC 30.6 g/dl (32.2-35.5); MEAN CELL VOLUME 101.7 fl (79.4-94.8); MEAN PLT VOLUME 9.9 fl (9.4-12.3); MONOCYTE # 0.86 x10^3/uL (0.24-0.86); MONOCYTE % 13.1 % (4.7-12.5); PLATELET COUNT # 92 x10^3/uL (182-369); RDW 14.1 % (12.4-16.6)
[2024-11-19 17:57] LABS: CHLORIDE 106 mmol/L (98-107); POTASSIUM 5.5 mmol/L (3.5-5.1); SODIUM 140 mmol/L (136-145)
[2024-11-19 17:59] LABS: ALBUMIN 3.4 g/dl (3.4-5.0); CALCIUM 9.4 mg/dL (8.5-10.1)
[2024-11-19 18:00] LABS: ANION GAP 11 mmol/L (4-13); BLOOD UREA NITROGEN 72.3 mg/dL (7-18); CO2 23 mmol/L (21-32); GLUCOSE,RANDOM 114 mg/dL (74-106); MAGNESIUM 2.1 mg/dL (1.8-2.4)
[2024-11-19 18:02] LABS: SGPT/ALT 22 U/L (13-61)
[2024-11-19 18:03] LABS: PHOSPHOROUS 2.7 mg/dL (2.5-4.9); SGOT/AST 46 U/L (15-37)
[2024-11-19 18:04] LABS: BILIRUBIN,TOTAL 0.7 mg/dL (0.2-1); TOT PROT 7.3 g/dl (6.4-8.2)
[2024-11-19 18:05] LABS: ALK PHOS 218 U/L (45-117)
[2024-11-19] MEDS: ACETAMINOPHEN 1000 MG/100 ML BAG IVPB ONE (19:00)
[2024-11-19 19:27] LABS: CHLORIDE 104 mmol/L (98-107); POTASSIUM 4.6 mmol/L (3.5-5.1); SODIUM 139 mmol/L (136-145)
[2024-11-19 19:31] LABS: ALBUMIN 3.9 g/dl (3.4-5.0)
[2024-11-19 19:32] LABS: ANION GAP 14 mmol/L (4-13); BLOOD UREA NITROGEN 74.3 mg/dL (7-18); CALCIUM 9.5 mg/dL (8.5-10.1); CO2 21 mmol/L (21-32)
[2024-11-19 19:33] LABS: GLUCOSE,RANDOM 89 mg/dL (74-106)
[2024-11-19 19:35] LABS: SGPT/ALT 24 U/L (13-61)
[2024-11-19 19:36] LABS: SGOT/AST 43 U/L (15-37)
[2024-11-19 19:37] LABS: BILIRUBIN,TOTAL 0.7 mg/dL (0.2-1); TOT PROT 7.8 g/dl (6.4-8.2)
[2024-11-19 19:38] LABS: ALK PHOS 233 U/L (45-117)
[2024-11-19] MEDS ORDERED: ACETAMINOPHEN INJECTION 100 ML ONE (21:01)
[2024-11-20] MEDS: oxyCODONE HCL 5 MG TABLET PO ONE ×2 (00:06→03:22)
[2024-11-20] MEDS ORDERED: oxyCODONE HCL 10 MG SUSTAINED ACTING TABLET PO PRN (01:39)
[2024-11-20] MEDS ORDERED: ALBUTEROL SO4 HFA INHALER IH PRN (01:45)
[2024-11-20 08:06] LABS: HEMOGLOBIN 10.8 g/dL (11.2-15.7); MCHC 30.9 g/dl (32.2-35.5); MEAN CELL VOLUME 101.2 fl (79.4-94.8); MEAN PLT VOLUME 9.8 fl (9.4-12.3); PLATELET COUNT # 83 x10^3/uL (182-369); RDW 14.1 % (12.4-16.6)
[2024-11-20 08:28] LABS: CHLORIDE 106 mmol/L (98-107); POTASSIUM 4.5 mmol/L (3.5-5.1); SODIUM 139 mmol/L (136-145)
[2024-11-20 08:36] LABS: BLOOD UREA NITROGEN 79.8 mg/dL (7-18); GLUCOSE,RANDOM 89 mg/dL (74-106); SGOT/AST 36 U/L (15-37); SGPT/ALT 20 U/L (13-61)
[2024-11-20 08:37] LABS: ALBUMIN 3.2 g/dl (3.4-5.0); ANION GAP 11 mmol/L (4-13); BILIRUBIN,TOTAL 0.9 mg/dL (0.2-1); CO2 22 mmol/L (21-32); TOT PROT 6.7 g/dl (6.4-8.2)
[2024-11-20 08:39] LABS: PHOSPHOROUS 3.1 mg/dL (2.5-4.9)
[2024-11-20 08:40] LABS: CALCIUM 9.1 mg/dL (8.5-10.1)
[2024-11-20 08:41] LABS: MAGNESIUM 2.3 mg/dL (1.8-2.4)
[2024-11-20 08:47] LABS: ALK PHOS 191 U/L (45-117); CREATININE 16.1 mg/dL (0.55-1.3)
[2024-11-20] MEDS ORDERED: SODIUM CHLORIDE 250 ML IV PRN (09:38)
[2024-11-20] MEDS: VITAMIN B COMP W-C 1 EA TABLET (NEPHRO-VITE) PO SCH (11:37)
[2024-11-20] MEDS: SERTRALINE HCL 25 MG TABLET (FP) PO SCH (11:37)
[2024-11-20] MEDS: levETIRAcetam 250 MG TABLET PO SCH (11:37)
[2024-11-20] MEDS: GABAPENTIN 300 MG CAPSULE PO SCH (11:37)
[2024-11-20] MEDS: FERROUS SO4 325 MG TABLET (FP) PO SCH (11:37)
[2024-11-20] MEDS: NORTRIPTYLINE HCL 10 MG CAPSULE PO SCH (12:42)
[2024-11-20] MEDS: oxyCODONE HCL 5 MG TABLET PO PRN (13:30)
[2024-11-20] MEDS ORDERED: oxyCODONE HCL 5 MG TABLET PO PRN ×2 (13:30→14:15)
[2024-11-20 15:10] LABS: HCV DIAGNOSTIC IN-HOUSE W/RFLX NON-REACTIVE (NONREACTIVE)
[2024-11-20] MEDS: MELATONIN 5 MG TABLETS PO SCH (21:58)
[2024-11-20] MEDS: ATORVASTATIN CA 40 MG TABLET (FP) PO SCH (21:59)
[2024-11-21 08:54] LABS: HEMATOCRIT 36.1 % (34.1-44.9); HEMOGLOBIN 11.2 g/dL (11.2-15.7); MEAN CELL VOLUME 101.7 fl (79.4-94.8); MEAN PLT VOLUME 10.1 fl (9.4-12.3); PLATELET COUNT # 80 x10^3/uL (182-369); RDW 13.9 % (12.4-16.6)
[2024-11-21 09:24] LABS: CHLORIDE 102 mmol/L (98-107); POTASSIUM 3.9 mmol/L (3.5-5.1); SODIUM 138 mmol/L (136-145)
[2024-11-21 09:39] LABS: ALBUMIN 3.2 g/dl (3.4-5.0); ANION GAP 9 mmol/L (4-13); CALCIUM 8.6 mg/dL (8.5-10.1); CO2 28 mmol/L (21-32); GLUCOSE,RANDOM 83 mg/dL (74-106); MAGNESIUM 1.9 mg/dL (1.8-2.4)
[2024-11-21 09:41] LABS: ALK PHOS 195 U/L (45-117); BLOOD UREA NITROGEN 34.2 mg/dL (7-18)
[2024-11-21 09:42] LABS: SGOT/AST 32 U/L (15-37); SGPT/ALT 17 U/L (13-61)
[2024-11-21 09:43] LABS: BILIRUBIN,TOTAL 0.8 mg/dL (0.2-1)
[2024-11-21 09:44] LABS: TOT PROT 6.8 g/dl (6.4-8.2)
[2024-11-21 09:45] LABS: CREATININE 9.6 mg/dL (0.55-1.3)
[2024-11-21] MEDS ORDERED: SODIUM CHLORIDE 250 ML IV PRN (17:59)
[2024-11-22 08:08] LABS: ABSOLUTE IMMATURE GRANULOCYTES 0.02 x10^3/uL (0.0-0.031); BASOPHILS # 0.04 x10^3/uL (0.01-0.08); EOSINOPHIL % 6.9 % (0.7-5.8); EOSINOPHILS # 0.33 x10^3/uL (0.04-0.36); HEMATOCRIT 35.3 % (34.1-44.9); HEMOGLOBIN 10.8 g/dL (11.2-15.7); MCHC 30.6 g/dl (32.2-35.5); MEAN CELL VOLUME 102.9 fl (79.4-94.8); MEAN PLT VOLUME 9.6 fl (9.4-12.3); MONOCYTE # 0.93 x10^3/uL (0.24-0.86); MONOCYTE % 19.4 % (4.7-12.5); PLATELET COUNT # 79 x10^3/uL (182-369)
[2024-11-22 08:26] LABS: CHLORIDE 101 mmol/L (98-107); SODIUM 136 mmol/L (136-145)
[2024-11-22 08:30] LABS: BLOOD UREA NITROGEN 41.1 mg/dL (7-18); CALCIUM 8.9 mg/dL (8.5-10.1); GLUCOSE,RANDOM 88 mg/dL (74-106)
[2024-11-22 08:31] LABS: ALBUMIN 3.2 g/dl (3.4-5.0); ANION GAP 7 mmol/L (4-13); CO2 28 mmol/L (21-32)
[2024-11-22 08:33] LABS: SGOT/AST 24 U/L (15-37); SGPT/ALT 17 U/L (13-61)
[2024-11-22 08:34] LABS: BILIRUBIN,TOTAL 0.7 mg/dL (0.2-1)
[2024-11-22 08:35] LABS: TOT PROT 6.9 g/dl (6.4-8.2)
[2024-11-22 08:36] LABS: ALK PHOS 190 U/L (45-117)
[2024-11-22 08:40] LABS: CREATININE 10.8 mg/dL (0.55-1.3)
[2024-11-24] MEDS: oxyCODONE HCL 5 MG TABLET PO PRN (10:18)
[2024-11-25] MEDS: EPOETIN ALFA-EPBX 2,000 UNIT/ML VIAL IVPUSH ONE (09:09)
[2024-11-25] MEDS: SODIUM CHLORIDE 250 ML IV PRN (09:09)
[2024-11-25] MEDS: oxyCODONE HCL 5 MG TABLET PO PRN (12:52)
[2024-11-25 12:57] VITALS: BP 121/57; PULSE 69; RESP 20; TEMP 97.9
== END 2024-11-25 18:23 | DRG 562 ==
LOC: JER 14:37 → JERBED 20:59 → J7W 11-20 00:01 → OBSVTOIN 11-20 17:27
PROVIDERS: ADMIT Internal Medicine; ATTEND Physician Assistant
PROC: 5A1D70Z Performance of Urinary Filtration, Intermittent, Less than 6 Hours Per Day (ICD-10-PCS; principal; 2024-11-25)
DX: S82.201A Unspecified fracture of shaft of right tibia, initial encounter for closed fracture (principal); N18.6 End stage renal disease; I12.0 Hypertensive chronic kidney disease with stage 5 chronic kidney disease or end stage renal disease; Z68.41 Body mass index [BMI] 40.0-44.9, adult; S82.401A Unspecified fracture of shaft of right fibula, initial encounter for closed fracture; L29.9 Pruritus, unspecified; Z99.3 Dependence on wheelchair; E66.9 Obesity, unspecified; D63.1 Anemia in chronic kidney disease; F32.A Depression, unspecified; W19.XXXA Unspecified fall, initial encounter; Y93.9 Activity, unspecified; Y92.89 Other specified places as the place of occurrence of the external cause; Y99.9 Unspecified external cause status; Z99.2 Dependence on renal dialysis
CPT/HCPCS: 36415; 71045-TC-FY; 73590-TC-RT-FY; 73610-TC-RT-FY; 73630-TC-RT-FY; 80053; 82962; 83735; 84100; 85025; 86704; 86705; 86803; 87340; 87517; 93005; 93010; 99285-25; G0378; Q5106

== ENCOUNTER 2024-12-12 11:10 | Inpatient (IN) | payer OTHER ==
[2024-12-12] MEDS ORDERED: ALBUTEROL SO4 2.5/IPRATROPIUM 0.5 INH SOL 3 ML VIAL.NEB. NEB ONE ×2 (12:21→13:17)
[2024-12-12] MEDS: ALBUTEROL SO4 2.5/IPRATROPIUM 0.5 INH SOL 3 ML VIAL.NEB. NEB SCH (12:27)
[2024-12-12 13:21] LABS: VENOUS BASE EXCESS -4.2 mmol/L (-2-2); VENOUS O2 SATURATION 76.6 % (70-80); VENOUS PH 7.265 (7.310-7.410)
[2024-12-12 13:25] LABS: ABSOLUTE IMMATURE GRANULOCYTES 0.03 x10^3/uL (0.0-0.031); BASOPHILS # 0.04 x10^3/uL (0.01-0.08); EOSINOPHIL % 4.7 % (0.7-5.8); EOSINOPHILS # 0.26 x10^3/uL (0.04-0.36); HEMATOCRIT 35.2 % (34.1-44.9); HEMOGLOBIN 11.1 g/dL (11.2-15.7); MCHC 31.5 g/dl (32.2-35.5); MEAN CELL VOLUME 102.3 fl (79.4-94.8); MEAN PLT VOLUME 10.7 fl (9.4-12.3); MONOCYTE % 10.8 % (4.7-12.5); PLATELET COUNT 106 x10^3/uL (182-369); RDW 13.4 % (12.4-16.6)
[2024-12-12 13:28] LABS: INR 1.11 (0.83-1.09); PROTHROMBIN TIME (PATIENT) 12.2 SEC (9.7-13.0)
[2024-12-12 13:30] LABS: ACTIVATED PTT 26.8 SECONDS (25.2-36.5)
[2024-12-12 13:46] LABS: CHLORIDE 106 mmol/L (98-107); POTASSIUM 4.9 mmol/L (3.5-5.1); SODIUM 136 mmol/L (136-145)
[2024-12-12 13:48] LABS: ANION GAP 6 mmol/L (4-13); BLOOD UREA NITROGEN 43.7 mg/dL (7-18); CALCIUM 9.6 mg/dL (8.5-10.1); CO2 24 mmol/L (21-32); GLUCOSE,RANDOM 106 mg/dL (74-106); MAGNESIUM 1.5 mg/dL (1.8-2.4)
[2024-12-12 13:52] LABS: SGOT/AST 51 U/L (15-37); SGPT/ALT 29 U/L (13-61)
[2024-12-12 13:53] LABS: BILIRUBIN,TOTAL 0.6 mg/dL (0.2-1); TOT PROT 7.2 g/dl (6.4-8.2)
[2024-12-12 13:54] LABS: ALK PHOS 262 U/L (45-117)
[2024-12-12 13:58] LABS: CREATININE 9.4 mg/dL (0.55-1.3)
[2024-12-12 17:47] VITALS: BMI 43.0
[2024-12-12] MEDS ORDERED: ALBUTEROL SO4 HFA INHALER IH PRN (18:45)
[2024-12-12] MEDS: ATORVASTATIN CA 40 MG TABLET (FP) PO SCH (21:48)
[2024-12-12] MEDS: levETIRAcetam 250 MG TABLET PO SCH (21:48)
[2024-12-12] MEDS: NORTRIPTYLINE HCL 10 MG CAPSULE PO SCH (21:54)
[2024-12-12] MEDS ORDERED: APIXABAN 5 MG TABLET PO SCH (22:00)
[2024-12-13 07:03] LABS: HEMATOCRIT 35.4 % (34.1-44.9); HEMOGLOBIN 10.8 g/dL (11.2-15.7); MCHC 30.5 g/dl (32.2-35.5); MEAN CELL VOLUME 103.2 fl (79.4-94.8); MEAN PLT VOLUME 10.4 fl (9.4-12.3); PLATELET COUNT 109 x10^3/uL (182-369); RDW 13.5 % (12.4-16.6)
[2024-12-13 07:09] LABS: CHLORIDE 106 mmol/L (98-107); POTASSIUM 4.2 mmol/L (3.5-5.1); SODIUM 139 mmol/L (136-145)
[2024-12-13 07:11] LABS: CALCIUM 9.2 mg/dL (8.5-10.1); GLUCOSE,RANDOM 123 mg/dL (74-106)
[2024-12-13 07:12] LABS: ALBUMIN 2.9 g/dl (3.4-5.0); ANION GAP 10 mmol/L (4-13); BLOOD UREA NITROGEN 51.7 mg/dL (7-18); CO2 24 mmol/L (21-32); MAGNESIUM 1.9 mg/dL (1.8-2.4)
[2024-12-13 07:15] LABS: PHOSPHOROUS 4.2 mg/dL (2.5-4.9); SGOT/AST 28 U/L (15-37); SGPT/ALT 24 U/L (13-61)
[2024-12-13 07:16] LABS: BILIRUBIN,TOTAL 0.7 mg/dL (0.2-1); CREATININE 10.4 mg/dL (0.55-1.3); TOT PROT 6.9 g/dl (6.4-8.2)
[2024-12-13 07:18] LABS: ALK PHOS 249 U/L (45-117)
[2024-12-13] MEDS ORDERED: SODIUM CHLORIDE 250 ML IV PRN (08:13)
[2024-12-13] MEDS: SERTRALINE HCL 25 MG TABLET (FP) PO SCH (09:21)
[2024-12-13] MEDS: GABAPENTIN 300 MG CAPSULE PO SCH (09:21)
[2024-12-13] MEDS: ACETAMINOPHEN 1000 MG/100 ML BAG IVPB PRN (11:55)
[2024-12-14] MEDS: FAMOTIDINE 20 MG TABLET PO ONE (12:31)
[2024-12-14] MEDS: ACETAMINOPHEN 325 MG TABLET (FP) PO PRN (15:42)
[2024-12-14] MEDS: MELATONIN 5 MG TABLETS PO PRN (21:38)
[2024-12-15 07:11] LABS: HEMATOCRIT 36.2 % (34.1-44.9); HEMOGLOBIN 11.2 g/dL (11.2-15.7); MCHC 30.9 g/dl (32.2-35.5); MEAN PLT VOLUME 9.7 fl (9.4-12.3); PLATELET COUNT 115 x10^3/uL (182-369); RDW 13.2 % (12.4-16.6)
[2024-12-15 07:41] LABS: CHLORIDE 104 mmol/L (98-107); POTASSIUM 3.9 mmol/L (3.5-5.1); SODIUM 139 mmol/L (136-145)
[2024-12-15 07:42] LABS: CALCIUM 9.2 mg/dL (8.5-10.1)
[2024-12-15 07:43] LABS: ANION GAP 9 mmol/L (4-13); BLOOD UREA NITROGEN 41.8 mg/dL (7-18); CO2 25 mmol/L (21-32); GLUCOSE,RANDOM 72 mg/dL (74-106)
[2024-12-15 07:54] LABS: CREATININE 8.2 mg/dL (0.55-1.3)
[2024-12-15 16:25] VITALS: BP 123/75; PULSE 70; RESP 18; TEMP 98.4
== END 2024-12-15 16:42 | DRG 308 ==
LOC: JER 11:10 → JERBED 15:29 → J4W 17:25
PROVIDERS: ADMIT Internal Medicine; ATTEND Student in an Organized Health Care Education/Training Program
PROC: 5A1D70Z Performance of Urinary Filtration, Intermittent, Less than 6 Hours Per Day (ICD-10-PCS; principal; 2024-12-13)
DX: I48.20 Chronic atrial fibrillation, unspecified (principal); N18.6 End stage renal disease; I12.0 Hypertensive chronic kidney disease with stage 5 chronic kidney disease or end stage renal disease; G40.909 Epilepsy, unspecified, not intractable, without status epilepticus; J44.9 Chronic obstructive pulmonary disease, unspecified; Z99.2 Dependence on renal dialysis; F32.A Depression, unspecified
CPT/HCPCS: 0241U-QW; 36415; 71045-TC-FY; 80048; 80053; 82803; 83605; 83735; 84100; 84439; 84443; 84484; 85025; 85027; 85610; 85730; 93005; 93010; 93306-TC; 93990-TC; 99285-25; J0131